=== PATIENT | female | born 1950 | race Caucasian/White ===

== ENCOUNTER 2022-09-06 13:57 | Outpatient (RCR) | payer MEDICARE, OTHER, SELFPAY | END 2023-03-05 23:59 | disposition home or self-care (01) | LOC: CCIC 13:57 | PROVIDERS: Visit Provider Internal Medicine Hematology & Oncology | DX: C50.912 Malignant neoplasm of unspecified site of left female breast (principal); L70.9 Acne, unspecified; Z90.13 Acquired absence of bilateral breasts and nipples; Z86.73 Personal history of transient ischemic attack (TIA), and cerebral infarction without residual deficits | CPT/HCPCS: 99212; 99213 ==

== ENCOUNTER 2022-09-29 12:57 | Outpatient (CLI) | payer MEDICARE, OTHER, SELFPAY ==
[2022-09-29 17:40] LABS: Chloride* 104 mmol/L (96-114); Potassium* 4.9 mmol/L (3.6-5.1); Sodium* 138 mmol/L (135-149)
[2022-09-29 17:42] LABS: Cholesterol* 99 mg/dL (90-199); Creatinine* 1.3 mg/dL (0.5-1.5); Estimated Glomerular Filt Rate 43 ml/min
[2022-09-29 17:43] LABS: Alanine Aminotransferase* 17 U/L (4-35); Blood Urea Nitrogen* 42 mg/dL (7-30); Calcium* 9.4 mg/dL (8.4-10.6); Carbon Dioxide* 25 mmol/L (20-32); Glucose* 318 mg/dL (60-115); HDL Cholesterol* 46 mg/dL (>=50); LDL Cholesterol Calculated 27 mg/dL (<100); Triglycerides* 130 mg/dL (40-149)
== END 2022-09-29 12:58 | disposition home or self-care (01) ==
LOC: NFLDREF 12:58
PROVIDERS: PCP Family Medicine; Visit Provider Family Medicine
DX: Z00.00 Encounter for general adult medical examination without abnormal findings (principal); E78.5 Hyperlipidemia, unspecified; E11.9 Type 2 diabetes mellitus without complications; I10 Essential (primary) hypertension
CPT/HCPCS: 80048; 80061; 84460

== ENCOUNTER 2023-06-13 10:42 | Outpatient (CLI) | payer MEDICARE, OTHER, SELFPAY ==
--- NOTE | 2023-06-13 11:00 | CRLHL7_ITS ---
For Patients: As a result of the Century Cures Act, medical imaging exams and procedure reports are released immediately into your electronic medical record. You may view this report before your referring provider. If you have questions, please contact your health care provider. Indication: Right hip pain Comparison: 06/08/2023 Procedure : Informed consent was obtained. The site was marked. Time-out was performed. The skin of the right hip was cleansed with ChloraPrep. A sterile drape was placed. 8 cc of 1 percent lidocaine was administered for superficial anesthesia. Subsequently a 22 gauge spinal needle was introduced into the right hip joint under intermittent fluoroscopic guidance. 7 cc 1 percent lidocaine and 2 cc 40 milligram/cc Depo-Medrol then injected into the right hip joint. The needle was removed and hemostasis achieved with direct pressure. A dressing was placed. The patient tolerated the procedure well without immediate complication. Total fluoroscopy time 13 seconds. Impression: Successful fluoroscopically guided right hip injection of 80 milligrams Depo-Medrol. Dictated by Farshad Chester MD @ 06/13/2023 12:20:17 PM (Electronically Signed)
== END 2023-06-13 10:43 | disposition home or self-care (01) ==
LOC: RAD 10:44
PROVIDERS: PCP Family Medicine; Visit Provider Orthopaedic Surgery Sports Medicine
DX: M16.11 Unilateral primary osteoarthritis, right hip (principal); M16.12 Unilateral primary osteoarthritis, left hip
CPT/HCPCS: 20610; 77002; Q9966

== ENCOUNTER 2023-06-22 07:38 | Outpatient (CLI) | payer MEDICARE, OTHER, SELFPAY ==
--- NOTE | 2023-06-22 08:56 | P.ANES_ITS ---
Anesthesia Charges Start Date/Time Anesthesia Start Date: 06/22/23 Anesthesia Start Time: 08:25 Stop Date/Time Anesthesia Stop Date: 06/22/23 Anesthesia Stop Time: 08:55 Summary Extremes of Age - Over 70 or under 1: SENIOR SHAREPOINT ARCHITECT
== END 2023-06-22 07:39 | disposition home or self-care (01) ==
LOC: OP CLINIC 07:39
PROVIDERS: PCP Family Medicine; Visit Provider Internal Medicine
DX: Z12.11 Encounter for screening for malignant neoplasm of colon (principal); K63.5 Polyp of colon; K64.8 Other hemorrhoids; K57.30 Diverticulosis of large intestine without perforation or abscess without bleeding; Z86.010 Personal history of colon polyps
CPT/HCPCS: 00811; 45380; 88305; 99100; J2405; J2704

== ENCOUNTER 2023-06-29 10:05 | Outpatient (CLI) | payer MEDICARE, OTHER, SELFPAY ==
--- NOTE | 2023-06-29 10:15 | CRLHL7_ITS ---
For Patients: As a result of the Century Cures Act, medical imaging exams and procedure reports are released immediately into your electronic medical record. You may view this report before your referring provider. If you have questions, please contact your health care provider. Indication: OSTEOARTHRITIS, LEFT HIP Procedure : Informed consent was obtained. The site was marked. Time-out was performed. The skin of the left hip was cleansed with ChloraPrep. A sterile drape was placed. 8 cc of 1 percent lidocaine was administered for superficial anesthesia. Subsequently a 22 gauge spinal needle was introduced into the left hip joint under intermittent fluoroscopic guidance. Injection of 7 cc 1 percent lidocaine and 2 cc of 40 milligram/cc Depo-Medrol performed. The needle was removed and hemostasis achieved with direct pressure. A dressing was placed. The patient tolerated the procedure well without immediate complication. Total fluoroscopy time 8 seconds. Impression: Successful fluoroscopically guided left hip injection with 80 milligrams of Depo-Medrol. Dictated by Farshad Chester MD @ 06/29/2023 12:19:40 PM (Electronically Signed)
== END 2023-06-29 10:06 | disposition home or self-care (01) ==
LOC: RAD 10:05
PROVIDERS: PCP Family Medicine; Visit Provider Orthopaedic Surgery Sports Medicine
DX: M16.11 Unilateral primary osteoarthritis, right hip (principal); M16.12 Unilateral primary osteoarthritis, left hip
CPT/HCPCS: 20610; 77002; J1030

== ENCOUNTER 2024-01-21 21:30 | Emergency (ER) | payer MEDICARE, OTHER, SELFPAY ==
[2024-01-21 21:59] VITALS: BP 158/80; PULSE 93; RESP 18; TEMP 37.2; O2SAT 88; BMI 45.5
--- NOTE | 2024-01-21 22:14 | XR_ITS ---
Patient: LAYLA PITTS Facility:?[facility] Patient ID:?[id number] Site Patient ID:?[id number]. Site :?[id number] Study:?XRay-Chest 1V PORTABLE-01/21/2024 10:50:33 PM Ordering Physician:ERNESTO Final Report: INDICATION: Weakness, hypoxia TECHNIQUE: Chest radiograph 1 view COMPARISON: None FINDINGS: The sensitivity and specificity of the exam are moderately limited by the patient`s body habitus. Mediastinum: The mediastinum is normal in appearance. The cardiac silhouette is mildly enlarged but may be accentuated by the portable technique. Moderate elevation of the right hemidiaphragm is noted. Lung: Mild perihilar and right basilar subsegmental atelectasis is seen. No sign of pleural effusion seen. No pneumothorax is identified. Bone and Soft tissue: Unremarkable for age. IMPRESSIONS: 1. Mild perihilar and right basilar subsegmental atelectasis is seen. 2. The cardiac silhouette is mildly enlarged but may be accentuated by the portable technique. Dictated by Rico Kenney MD @ 01/21/2024 11:10:37 PM Dictated by: Rico Kenney MD @ 01/21/2024 23:10:41 Signed by:?Rico Kenney MD @01/21/2024 11:10:41 PM (Electronic Signature)
--- NOTE | 2024-01-21 22:15 | ED.GENADULT ---
HPI - General Adult General Chief complaint: Weakness Stated complaint: Weakness, incontinence, low O2 Time Seen by Provider: 01/21/24 22:04 History of Present Illness HPI narrative: This 73-year-old female comes in with her daughter for evaluation. She and her daughter recently returned from a cruise in the [facility]. They arrived back yesterday and the daughter went to check on her as she lives in [facility] assisted living. The patient had been laying there for most of the day and was incontinent of both urine and stool. There is no report of fever. The patient states that she does have a persistent cough for the past 3 days. She normally has oximetry around 94% but arrives here with oximetry at 88% on room air. She reports some generalized fatigue and weakness. Related Data Previous Rx's Medication Instructions Recorded spironolactone 50 mg tablet 50 mg PO QDAY #90 tabs 09/29/22 aspirin 81 mg tablet,delayed 81 mg PO QDAY #90 tabs 03/23/23 release flash glucose sensor (FreeStyle #6 ea 03/23/23 Michelle 14 Day Sensor kit) pen needle, diabetic 31 gauge x #100 ea 03/23/23/ (Easy Touch) insulin lispro 100 unit/mL 10 - 25 unit (0.1 - 0.25 mL) 10/26/23 subcutaneous pen (Humalog KwikPen subcut BID #15 mL (U-100) Insulin) benazepril 40 mg tablet 80 mg (2 x 40 mg) PO QDAY #180 tabs 12/07/23 omeprazole 20 mg capsule,delayed 20 mg PO QDAY #90 caps 12/20/23 release amlodipine 5 mg tablet 5 mg PO QDAY #90 tabs 12/21/23 metoprolol succinate 50 mg 50 mg PO QDAY #90 tabs 12/21/23 tablet,extended release 24 hr (Toprol XL) rosuvastatin 10 mg tablet 10 mg PO QDAY #90 tabs 12/21/23 metformin 500 mg tablet,extended 1,000 mg (2 x 500 mg) PO BID #360 01/07/24 release 24 hr tabs insulin glargine 100 unit/mL (3 28 unit (0.28 mL) subcut QHS #22.5 01/10/24 mL) subcutaneous pen (Lantus mL Solostar U-100 Insulin) Allergies Allergy/AdvReac Type Severity Reaction Status Date / Time adhesive Allergy Unknown Rash Verified 10/16/23 09:31 cat dander Allergy Unknown Headache Verified 10/16/23 09:31 gadobutrol Allergy Unknown Verified 10/16/23 09:31 latex Allergy Unknown Verified 10/16/23 09:31 nickel Allergy Unknown Rash Verified 10/16/23 09:31 oxycodone AdvReac Severe Vomiting Verified 10/16/23 09:31 infliximab [From Remicade] AdvReac vasculitis Verified 10/16/23 09:31 mildew AdvReac Mild Uncoded 10/16/23 09:31 mold AdvReac Mild Uncoded 10/16/23 09:31 smut AdvReac Mild Uncoded 10/16/23 09:31 Review of Systems Status of ROS: Reports: 10 or more systems reviewed and unremarkable except as noted in History and below Narrative: Constitutional: No fevers, no weight gain or loss. Eyes: No discharge. No vision changes. HENT: No congestion, no sore throat, no ear pain. Cardiovascular: No chest pain, no palpitations. Respiratory: Frequent cough. Gastrointestinal: No abdominal pain, no vomiting, no diarrhea. Incontinent of stool. Genitourinary: No hematuria. Incontinent of urine. Musculoskeletal: Normal range of motion. Skin: No rashes, no pruritis. Neurological: No dizziness, weakness, sensory change, speech change. Endo/Heme/Allergies: No bruising or bleeding. No polydipsia. Pysch: no suicidality, no anxiety, no insomnia. All other systems reviewed and are negative. [facility] Medical History (Updated 01/21/24 @ 23:24 by Kd Bowens MD) Type 2 diabetes mellitus, with long-term current use of insulin ?E11.9 - Type 2 diabetes mellitus without complications (ICD-10) ?Z79.4 - continuous churn buttermaker (current) use of insulin (ICD-10) Mixed hyperlipidemia ?E78.2 - Mixed hyperlipidemia (ICD-10) Primary hypertension ?I10 - Essential (primary) hypertension (ICD-10) Hx of adenomatous polyp of colon ?Z86.010 - Personal history of colonic polyps (ICD-10) Rosacea ?L71.9 - Rosacea, unspecified (ICD-10) GERD (gastroesophageal reflux disease) ?K21.9 - Gastro-esophageal reflux disease without esophagitis (ICD-10) Chronic low back pain ?M54.50 - Low back pain, unspecified (ICD-10) ?G89.29 - Other chronic pain (ICD-10) IgA mediated leukocytoclastic vasculitis ?D69.0 - Allergic purpura (ICD-10) History of right breast cancer (10/2013) ?Z85.3 - Personal history of malignant neoplasm of breast (ICD-10) History of cerebrovascular accident (CVA) due to embolism (11/25/19) ?Z86.73 - Personal history of transient ischemic attack (TIA), and cerebral infarction without residual deficits (ICD-10) History of rheumatic fever (1959) ?Z86.79 - Personal history of other diseases of the circulatory system (ICD-10) Seasonal allergic rhinitis ?J30.2 - Other seasonal allergic rhinitis (ICD-10) Rheumatoid arthritis ?M06.9 - Rheumatoid arthritis, unspecified (ICD-10) Osteopenia (04/22/12) ?M85.80 - Other specified disorders of bone density and structure, unspecified site (ICD-10) Obstructive sleep apnea syndrome ?G47.33 - Obstructive sleep apnea (adult) (pediatric) (ICD-10) Morbid obesity ?E66.01 - Morbid (severe) obesity due to excess calories (ICD-10) Surgical History History of bilateral mastectomy (11/19/13) ?Z90.13 - Acquired absence of bilateral breasts and nipples (ICD-10) Status post total right knee replacement (08/08/17) ?Z96.651 - Presence of right artificial knee joint (ICD-10) Status post total left knee replacement (02/06/18) ?Z96.652 - Presence of left artificial knee joint (ICD-10) History of hemorrhoidectomy (06/14/09) ?Z98.890 - Other specified postprocedural states (ICD-10) History of carpal tunnel release of both wrists (08/09/10) ?Z98.890 - Other specified postprocedural states (ICD-10) Social History (Updated 10/16/23 @ 09:54 by Whitney Ambrose ~ HIGH SCHOOL CHEMISTRY TEACHER, HIGH SCHOOL CHEMISTRY TEACHER) What is your current living situation?: I presently have a place to live Problems where you live: no known problems In the past 12 months, utilities in danger of being shut off: no In past 12 months, lack of transportation kept you from medical appts, meetings, work, or getting things needed for daily living: no In the past 12 mos, have been you worried that your food would run out before you had money to buy more?: never true In the past 12 mos, the food you bought just didn't last and you didn't have money to buy more?: never true Smoking Status: Never smoker How often does anyone, including family, friends and others, physically hurt you: never How often does anyone, including family, friends and others, insult or talk down to you: never How often does anyone, including family, friends and others, threaten you with harm: never How often does anyone, including family, friends and others, scream or curse at you: never Little interest or pleasure in doing things: not at all Feeling down, depressed, or hopeless: not at all Exam Narrative: Exam Narrative: Constitutional: Well-developed, well-nourished, no acute distress. HEENT: Normocephalic, atraumatic. Neck: Normal range of motion. Nontender. Supple. Heart: Regular. No murmurs. Normal rate. Intact distal pulses. Lungs: Wheezes are auscultated on the right greater than left. No use of accessory muscles for breathing. Abdomen: Normal bowel sounds. Nontender. No rebound tenderness. Genitalia: Deferred. Back: No midline tenderness. Normal range of motion. Extremities: Normal range of motion. No injury. Skin: Intact. No rash. Warm. No erythema or pallor. Neurologic: No altered sensation. Alert. She has a history of a stroke with some late affects. She is able to ambulate with the assistance of a walker. Nursing notes and vitals signs are reviewed. Const: Vital Signs, click to edit/add: Vital Signs - 24 hr 01/21/24 21:59 Temperature 99.0 F Pulse Rate [Pulse Oximeter] 93 Respiratory Rate 18 Blood Pressure [Ri ght Upper Arm] 158/80 H Pulse Oximetry 88 Oxygen Delivery Me thod Room Air Course Vital Signs Vital signs: Initial Vital Signs Temperature 99.0 F 01/21/24 21:59 Temperature Source Temporal Artery Scan 01/21/24 21:59 Pulse Rate 93 01/21/24 21:59 Respiratory Rate 18 01/21/24 21:59 Blood Pressure 158/80 H 01/21/24 21:59 Blood Pressure Mean 106 H 01/21/24 21:59 Blood Pressure Position Sitting 01/21/24 21:59 Pulse Oximetry 88 01/21/24 21:59 Oxygen Delivery Method Room Air 01/21/24 21:59 Vital Signs Temperature 99.0 F 01/21/24 21:59 Pulse Rate 93 01/21/24 21:59 Respiratory Rate 18 01/21/24 21:59 Blood Pressure 158/80 H 01/21/24 21:59 Pulse Oximetry 88 01/21/24 21:59 Oxygen Delivery Method Room Air 01/21/24 21:59 Temperature 99.0 F 01/21/24 21:59 Pulse Rate 93 01/21/24 21:59 Respiratory Rate 18 01/21/24 21:59 Blood Pressure 158/80 H 01/21/24 21:59 Pulse Oximetry 88 01/21/24 21:59 Oxygen Delivery Method Room Air 01/21/24 21:59 Medications Administered Medications: Discontinued Medications Generic Name Dose Route Start Last Admin Trade Name Freq PRN Reason Stop Dose Admin Albuterol/Ipratropium 1 neb 01/21/24 22:15 01/21/24 22:47 Iprat-Albut 0.5-2.5 Mg/3 Ml Neb IH 01/21/24 22:16 1 neb ONCE ONE Administration Medical Decision Making MDM Narrative Medical decision making narrative: This patient comes in reporting fatigue and frequent coughing however she has not been coughing much in the ER here. She does have a some decrease in her oxygen saturation. She is typically at around 94% but maintaining sufficient oximetry here at 90% on room air. She did receive a DuoNeb which seemed to help her breathing. Chest x-ray is obtained and shows no acute cardiopulmonary disease. Lab results also are reassuring except for positive nasal pharyngeal swab for influenza a. The patient has chronic incontinence of urine but there is no obvious sign of infection in urinalysis. The patient does have diabetes but nevertheless did receive an IV dose of Solu-Medrol 125 mg. She understands that this will cause her blood glucose to elevate. She does have sliding scale guidelines for insulin that can be used for this matter. The patient does appear okay to return home as she is maintaining sufficient oximetry without using accessory muscles for breathing. The patient was able to get up and ambulate to the bathroom. She is a candidate for Tamiflu and this was prescribed for her. Lab Data Labs: Lab Results 01/21/24 01/21/24 01/21/24 Range/Units 22:01 22:14 22:20 WBC 5.44 (4.50-11.00) K/uL RBC 5.12 (4.00-5.20) m/uL Hgb 13.1 (12.0-16.0) gm/dL Hct 41.0 (33.0-51.0) % MCV 80 (80-100) fL MCH 26 (26-34) pg MCHC 32 (32-36) gm/dL RDW Coeff of Mateo 14.4 (11.5-15.5) % Plt Count 184 (140-440) K/uL Neut % (Auto) 67.0 (42.0-72.0) % Lymph % (Auto) 13.1 L (20-44) % Runnels % (Auto) 18.4 H (0.0-11.0) % Eos % (Auto) 0.7 (0.0-7.0) % Baso % (Auto) 0.6 (0.0-3.0) % Neut # (Auto) 3.65 (1.7-7.0) K/uL Lymph # (Auto) 0.70 L (0.90-2.90) K/uL Runnels # (Auto) 1.00 H (0.00-0.90) K/UL Eos # (Auto) 0.04 (0.00-0.50) K/uL Baso # (Auto) 0.03 (0.00-0.30) K/uL Abs Immat Gran (auto) 0.01 (0.00-0.30) K/uL Imm/Tot Granulo (auto) 0.2 % Sodium 133 L (135-149) mmol/L Potassium 3.6 (3.6-5.1) mmol/L Chloride 98 (96-114) mmol/L Carbon Dioxide 27 (20-32) mmol/L Anion Gap 8 (7-15) mEq/L BUN 16 (7-30) mg/dL Creatinine 0.9 (0.5-1.5) mg/dL Estimated Creat Clear 41.97 Estimated GFR 67 ml/min Glucose 304 H (60-115) mg/dL Calcium 8.9 (8.4-10.6) mg/dL Urine Color Yellow (Yellow) Urine Appearance Cloudy A (Clear) Urine pH 6.0 (5.0-8.5) Ur Specific [place] 1.025 (1.000-1.030) Urine Protein 2+ A (Negative) Urine Glucose (UA) Trace A (Negative) Urine Ketones 3+ A (Negative) Urine Blood 3+ A (Negative) Urine Nitrite Negative (Negative) Urine Bilirubin Negative (Negative) Urine Urobilinogen 1.0 (0.2-1.0) Ur Leukocyte Esterase 1+ A (Negative) Urine RBC 2-5 A (0-2) Urine WBC 5-10 A (0-5) Ur Squamous Epith Cells Moderate A (None-Few) Amorphous Sediment Few A (None) Urine Bacteria Many A (None) SARS-CoV-2 (PCR) Negative SARS-CoV-2 (Negative) Influenza Type A (PCR) POSITIVE PCR FLU A A (Negative) Influenza Type B (PCR) Negative PCR FLU B (Negative) RSV (PCR) Negative PCR RSV (Negative) Discharge Plan Discharge Clinical Impression: Influenza A Patient Disposition: Home w/ Parent or Adult Condition: Stable Additional Instructions: Take medication as prescribed. Follow up with MD or return if not improving or worsening. Prescriptions: No Action spironolactone 50 mg tablet 50 mg PO QDAY Qty: 90 3RF aspirin 81 mg tablet,delayed release (DR/EC) 81 mg PO QDAY Qty: 90 3RF (DME) FreeStyle Michelle 14 Day Sensor Kit See Rx Instructions .Route Qty: 6 3RF Rx Instructions: Change every 2 weeks (DME) pen needle, diabetic [Easy Touch] 31 gauge x 5/16 needle See Rx Instructions .ROUTE .MEDSUPPLY Qty: 100 5RF Rx Instructions: Injects TID insulin lispro [Humalog KwikPen Insulin] 100 unit/mL insulin pen 10 - 25 unit subcut BID Qty: 15 5RF benazepril 40 mg tablet 80 mg PO QDAY Qty: 180 1RF omeprazole 20 mg capsule,delayed release(DR/EC) 20 mg PO QDAY Qty: 90 2RF amlodipine 5 mg tablet 5 mg PO QDAY Qty: 90 0RF metoprolol succinate [Toprol XL] 50 mg tablet extended release 24 hr 50 mg PO QDAY Qty: 90 0RF rosuvastatin 10 mg tablet 10 mg PO QDAY Qty: 90 0RF metformin 500 mg tablet extended release 24 hr 1,000 mg PO BID Qty: 360 0RF insulin glargine [Lantus Solostar U-100 Insulin] 100 unit/mL (3 mL) insulin pen 28 unit subcut QHS Qty: 22.5 0RF Follow Up/Referrals: Farshad Das MD [Primary Care Provider] - Stand Alone Forms: MyHealth Info Instructions
[2024-01-21 22:29] LABS: Basophils Absolute Auto 0.03 K/uL (0.00-0.30); Basophils Percent Auto 0.6 % (0.0-3.0); Eosinophils Absolute Auto 0.04 K/uL (0.00-0.50); Eosinophils Percent Auto 0.7 % (0.0-7.0); Hemoglobin* 13.1 gm/dL (12.0-16.0); Immature Granulocytes Abs Auto 0.01 K/uL (0.00-0.30); Immature Granulocytes Pct Auto 0.2 %; Lymphocytes Percent Auto 13.1 % (20-44); Mean Corpuscular HGB Conc 32 gm/dL (32-36); Mean Corpuscular Hemoglobin 26 pg (26-34); Mean Corpuscular Volume 80 fL (80-100); Monocytes Percent Auto 18.4 % (0.0-11.0); Neutrophils Absolute Auto 3.65 K/uL (1.7-7.0); Platelet Count* 184 K/uL (140-440); RDW Coefficient of Variation % 14.4 % (11.5-15.5); Red Blood Count 5.12 m/uL (4.00-5.20); White Blood Count* 5.44 K/uL (4.50-11.00)
[2024-01-21 22:33] LABS: Slide Review Reflex No
[2024-01-21 22:38] LABS: Appearance Urine Cloudy (Clear); Bilirubin Urine Negative (Negative); Blood Urine 3+ (Negative); Color Urine Yellow (Yellow); Glucose Urine Trace (Negative); Ketones Urine 3+ (Negative); Leukocyte Esterase Urine 1+ (Negative); Nitrite Urine Negative (Negative); Protein Urine 2+ (Negative); Specific Gravity Urine 1.025 (1.000-1.030)
[2024-01-21] MEDS: IPRAT-ALBUT 0.5-2.5 MG/3 ML NEB 1 NEB IH (22:47)
[2024-01-21 22:51] LABS: Amorphous Sediment Urine Few; Bacteria Urine Many; Squamous Epithelial Cell Urine Moderate (None-Few)
[2024-01-21 22:55] LABS: PCR FLU A POSITIVE PCR FLU A (Negative); PCR FLU B Negative PCR FLU B (Negative); PCR RSV Negative PCR RSV (Negative); SARS PCR* Negative SARS-CoV-2 (Negative)
[2024-01-21 22:57] LABS: Chloride* 98 mmol/L (96-114); Potassium* 3.6 mmol/L (3.6-5.1); Sodium* 133 mmol/L (135-149)
[2024-01-21 22:59] LABS: Creatinine* 0.9 mg/dL (0.5-1.5); Est. Creatinine Clearance* 41.97; Estimated Glomerular Filt Rate 67 ml/min
[2024-01-21 23:00] VITALS: O2SAT 90; O2SAT 95
[2024-01-21 23:00] LABS: Anion Gap 8 mEq/L (7-15); Blood Urea Nitrogen* 16 mg/dL (7-30); Calcium* 8.9 mg/dL (8.4-10.6); Carbon Dioxide* 27 mmol/L (20-32); Glucose* 304 mg/dL (60-115)
[2024-01-21 23:24] VITALS: RESP 18; O2SAT 91
[2024-01-22 00:23] VITALS: BP 158/80; PULSE 93; RESP 18; TEMP 37.2
== END 2024-01-22 00:23 | disposition home or self-care (01) ==
PROVIDERS: Emergency Provider Emergency Medicine Emergency Medical Services; PCP Family Medicine
DX: J10.1 Influenza due to other identified influenza virus with other respiratory manifestations (principal)
CPT/HCPCS: 36415; 71045; 80048; 81001; 85025; 87086; 87186; 87631; 94640; 94761; 96374; 99284

== ENCOUNTER 2024-02-29 15:09 | Outpatient (CLI) | payer MEDICARE, OTHER, SELFPAY | END 2024-02-29 15:10 | disposition home or self-care (01) | PROVIDERS: PCP Family Medicine; Visit Provider Family Medicine | DX: E78.2 Mixed hyperlipidemia (principal); E11.65 Type 2 diabetes mellitus with hyperglycemia; Z79.4 Long term (current) use of insulin | CPT/HCPCS: 80061; 84460 ==

== ENCOUNTER 2024-04-10 10:54 | Outpatient (CLI) | payer MEDICARE, OTHER, SELFPAY ==
--- NOTE | 2024-04-10 11:15 | CRLHL7_ITS ---
For Patients: As a result of the Century Cures Act, medical imaging exams and procedure reports are released immediately into your electronic medical record. You may view this report before your referring provider. If you have questions, please contact your health care provider. INDICATION: 73-year-old female. Right hip pain. Injection for pain relief. Informed consent was obtained. Benefits and risks were discussed. The patient agreed to proceed. [place] Protocol: A. Pre-procedure verification complete: Yes 1-relevant information/documentation available, reviewed and properly matched to the patient; 2-consent accurate and complete, 3-equipment and supplies available. B. Site marking complete: Yes Site marked if not in continuous attendance with patient. C. TIME OUT completed: Yes Time Out was conducted just prior to starting procedure to verify the eight required elements: 1-patient identity, 2-consent accurate and complete, 3-position, 4-correct side/site marked (if applicable), 5-procedure, 6-relevant images/results properly labeled and displayed (if applicable), 7-antibiotics/irrigation fluids (if applicable), 8-safety precautions, 9-laboratory results were reviewed. Utilizing sterile technique and 1 percent lidocaine for local anesthetic, a 22-gauge, 7-inch spinal needle was advanced into the right hip joint under fluoroscopic guidance without difficulty. Subsequently, 5 cc of nonionic Omnipaque 240 instilled demonstrates that the needle tip was clearly intra-articular. Subsequently, a mixture of 5 cc 1 percent xylocaine and 2 cc Depo-Medrol 40 mg/mL was instilled. The patient tolerated the injection well. No immediate complications. 1 minute 14 seconds fluoroscopy time utilized. The patient`s symptoms of pain went from 8/10 before the procedure to 6/10 shortly after the procedure. IMPRESSION: Technically successful right hip injection under fluoroscopic guidance for pain relief. The patient`s pain went from 8/10 before the procedure to 6/10 after the procedure. Jasbir Middleton M.D. Diagnostic/Nuclear Medicine Radiologist [email or web address] Transcribed: 2:34 pm DW/Dictated by: Jasbir Middleton MD @ 04/10/2024 2:08:00 PM (Electronically Signed)
== END 2024-04-10 10:55 | disposition home or self-care (01) ==
LOC: RAD 10:55
PROVIDERS: PCP Family Medicine; Visit Provider Orthopaedic Surgery Sports Medicine
DX: M16.11 Unilateral primary osteoarthritis, right hip (principal); M25.551 Pain in right hip
CPT/HCPCS: 20610; 77002; Q9966

== ENCOUNTER 2024-08-08 11:19 | Outpatient (CLI) | payer MEDICARE, OTHER, SELFPAY | END 2024-08-08 11:20 | disposition home or self-care (01) | PROVIDERS: PCP Family Medicine; Visit Provider Family Medicine | DX: I10 Essential (primary) hypertension (principal) | CPT/HCPCS: 80048; 85025 ==

== ENCOUNTER 2025-02-20 12:05 | Outpatient (CLI) | payer MEDICARE, OTHER, SELFPAY | END 2025-02-20 12:06 | disposition home or self-care (01) | LOC: FBOREF 12:05 | PROVIDERS: PCP Family Medicine; Visit Provider Family Medicine | DX: I10 Essential (primary) hypertension (principal); E78.2 Mixed hyperlipidemia | CPT/HCPCS: 80048; 80061; 84460 ==

== ENCOUNTER 2025-07-17 10:18 | Outpatient (CLI) | payer MEDICARE, OTHER, SELFPAY | END 2025-07-17 10:19 | disposition home or self-care (01) | PROVIDERS: PCP Family Medicine; Visit Provider Family Medicine | DX: E11.9 Type 2 diabetes mellitus without complications (principal); I10 Essential (primary) hypertension; E78.2 Mixed hyperlipidemia; Z79.4 Long term (current) use of insulin | CPT/HCPCS: 80048; 85025 ==